=== PATIENT | female | born 1945 | race Caucasian/White ===

== ENCOUNTER 2018-02-12 20:32 | Emergency (ER) | payer OTHER, BC ==
[2018-02-12 20:36] VITALS: TEMP 98.4; BMI 22.6
--- NOTE | 2018-02-12 21:07 | PDOC ---
History of Present Illness - History of Present Illness Initial Comments: This patient is a 72 year old female with PMHx of diabetes, hypertension, hyperthyroidism (thyroid goiter removal), who presents w/ headache, nausea, and lightheadedness this morning. Patient states that she woke up this morning with a pressure-like headache and just didnt feel well. She states last night she didn't sleep well. She states that she gets frequent headaches. She tried eating breakfast (cereal, banana) but states that she couldn't eat much. She also had coffee, chicken noodle soup and grapes throughout the day but states that she didn't have much of an appetite. She states laying down makes her feel better, and movement makes her feel worse. She reports associated muscle aches & blurry vision. Denies falls, trauma loc, palpitations, cp, sob, vomit, or fever. Allergies: penicillins (rash) PCP: César Baig. Surgical Hx: Right thyroid lobectomy (09/15/12) Appendectomy (1966) Meds: Atorvastatin, Metoprolol, Janumet, Levothyroxine <Tala Pruett - Last Filed: 02/12/18 22:35> <Mary Kelly - Last Filed: 02/13/18 00:15> - General Chief Complaint: Lightheaded Stated Complaint: NAUSEA, HEADACHE, DIZZINESS Time Seen by Provider: 02/12/18 21:02 Past History <Tala Pruett - Last Filed: 02/12/18 22:35> - Past Medical History Anemia: Yes (SEES DR GOSS FOR HX ANEMIA) Asthma: No Cancer: No Cardiac Disorders: No CVA: No COPD: No CHF: No Dementia: No Diabetes: Yes GI Disorders: No Disorders: No HTN: Yes Hypercholesterolemia: Yes Liver Disease: No Seizures: No Thyroid Disease: Yes (HYPER) - Surgical History Abdominal Surgery: No Appendectomy: Yes Cardiac Surgery: No Cholecystectomy: No Lung Surgery: No Neurologic Surgery: No Orthopedic Surgery: No - Suicide/Smoking/Psychosocial Hx Smoking History: Never smoked Have you smoked in the past 12 months: Yes Number of Cigarettes Smoked Daily: 3 Information on smoking cessation initiated: No 'Breaking Loose' booklet given: 09/15/12 Hx Alcohol Use: No (SOCIAL) Drug/Substance Use Hx: No Substance Use Type: None Hx Substance Use Treatment: No <Mary Kelly - Last Filed: 02/13/18 00:15> - Past Medical History Allergies/Adverse Reactions: Allergies Allergy/AdvReac Type Severity Reaction Status Date / Time Penicillins Allergy Rash Verified 02/12/18 20:36 Home Medications: Ambulatory Orders Atorvastatin Ca [Lipitor] 20 mg PO DAILY #0 tablet 09/16/12 Biotin 500 mcg PO BID #0 tablet 09/16/12 Cholecalciferol (Vitamin D3) [Vitamin D3] 2,000 unit PO BID #0 capsule 09/16/12 Cyanocobalamin (Vitamin B-12) [Vitamin B-12] 1,000 mcg PO DAILY #0 tablet Cyanocobalamin Vit B-12 Inj. [Vitamin B12 Injection -] 1,000 mcg IJ MONTHLY #0 vial 09/16/12 Docosahexanoic Acid/Epa [Fish Oil Softgel] 1 each PO DAILY #0 capsule 09/16/12 Ferrous Fumarate [Iron] 65 mg PO DAILY #0 tablet.er 09/16/12 Hydrocodone Bit/Acetaminophen [Vicodin 5-500] 1 tab PO Q6H PRN #0 tab 09/16/12 Metoprolol Succinate [Toprol XL -] 50 mg PO DAILY #0 tab.sr.24h 09/16/12 Sitagliptin Phos/Metformin HCl [Janumet 50-500 mg Tablet] 1 each PO DAILY #0 tablet 09/16/12 Review of Systems - Review of Systems Comments:: GENERAL/CONSTITUTIONAL: No fever, +muscle aches. HEAD, EYES, EARS, NOSE AND THROAT: +blurry vision. No ear pain or discharge. No sore throat. CARDIOVASCULAR: No chest pain or shortness of breath. RESPIRATORY: No cough, wheezing, or hemoptysis. GASTROINTESTINAL: +nausea, no vomiting, diarrhea or constipation. GENITOURINARY: No dysuria, frequency, or change in urination. MUSCULOSKELETAL: No joint or muscle swelling or pain. No neck or back pain. SKIN: No rash NEUROLOGIC:+headache, +lightheadedness, no loss of consciousness, or change in strength/sensation. ENDOCRINE: No increased thirst. No abnormal weight change. HEMATOLOGIC/LYMPHATIC: No anemia, easy bleeding, or history of blood clots. ALLERGIC/IMMUNOLOGIC: No hives or skin allergy. <Tala Pruett - Last Filed: 02/12/18 22:35> *Physical Exam - Vital Signs Last Vital Signs Temp Pulse Resp BP Pulse Ox 98.4 F 77 18 130/52 L 96 02/12/18 20:33 02/12/18 20:33 02/12/18 20:33 02/12/18 20:33 02/12/18 20:33 - Physical Exam Comments: GENERAL: Awake, alert, and fully oriented, in no acute distress HEAD: No signs of trauma. No sinus tenderness on percussion of sinuses. EYES: PERRLA, EOMI, sclera anicteric, conjunctiva clear. No nystagmus. LUNGS: Breath sounds equal, clear to auscultation bilaterally. No wheezes, and no crackles HEART: Regular rate and rhythm, normal S1 and S2, no murmurs, rubs or gallops ABDOMEN: Soft, nontender, normoactive bowel sounds. No guarding, no rebound. No masses EXTREMITIES: Normal range of motion, no edema. No clubbing or cyanosis. No cords, erythema, or tenderness NEUROLOGICAL: Cranial nerves II through XII grossly intact. Normal speech, normal gait SKIN: Warm, Dry, normal turgor, no rashes or lesions noted. <Tala Pruett - Last Filed: 02/12/18 22:35> - Vital Signs Last Vital Signs Temp Pulse Resp BP Pulse Ox 98.4 F 77 18 130/52 L 96 02/12/18 20:33 02/12/18 20:33 02/12/18 20:33 02/12/18 20:33 02/12/18 20:33 <Mary Kelly - Last Filed: 02/13/18 00:15> Heart Score/ECG Review - ECG Intrepretation Comment:: EKG interpretation: Vent rate: 63 bpm Normal sinus rhythm <Tala Pruett - Last Filed: 02/12/18 22:35> ED Treatment Course - LABORATORY CBC & Chemistry Diagram: 02/12/18 22:00 02/12/18 22:00 <Tala Pruett - Last Filed: 02/12/18 22:35> - LABORATORY CBC & Chemistry Diagram: 02/12/18 22:00 02/12/18 22:00 <Mary Kelly - Last Filed: 02/13/18 00:15> Medical Decision Making - Medical Decision Making 02/12/18 22:30 CBC is normal; her platelets are low; as they have been in the past. Urinalysis is normal. Awaiting the rest of the bloods. Pt has normal exam/ We will hydrate her. Pt has o complaints at this time. She mentions that she has chronic headaches, for which her PMD Duane has already ordered and scheduled her for an MRI of her brain. Pt admits that she was up until 2 am last night and that she always wakes in the middle of the night, and rarely gets a full nioght of sleep. I will recommend that she consider getting a sleep study 02/12/18 22:33 If chemistries are normal, she will be discharged after hydration. <Mary Kelly - Last Filed: 02/13/18 00:15> *DC/Admit/Observation/Transfer - Attestations Scribe Attestion: 02/12/18 21:16 Documentation prepared by Tala Pruett, acting as medical records analyst for Mary Kelly MD. <Tala Pruett - Last Filed: 02/12/18 22:35> - Discharge Dispostion Decision to Admit order: No <Mary Kelly - Last Filed: 02/13/18 00:15> Diagnosis at time of Disposition: Headache, Low blood pressure - Discharge Dispostion Disposition: HOME Condition at time of disposition: Stable - Referrals Referrals: César Zepeda MD [Primary Care Provider] - - Patient Instructions Printed Discharge Instructions: DI for Dehydration -- Adult, DI for Headache - Post Discharge Activity
[2018-02-12] MEDS ORDERED: SODIUM CHLORIDE 0.9% 500 ML INFUS.BAG IV ONE (21:40)
[2018-02-12 22:25] LABS: BASO % 1.1 % (0-2.0); EOS % 2.9 % (0-4.5); HEMATOCRIT 40.4 % (32.4-45.2); HEMOGLOBIN 13.8 GM/dL (10.7-15.3); MCH 31.4 pg (25.7-33.7); MCHC 34.1 g/dl (32.0-36.0); MONO % 8.9 % (3.8-10.2); NEUT % 50.1 % (42.8-82.8); PLATELET COUNT 120 K/MM3 (134-434); RBC 4.39 M/mm3 (3.60-5.2); RDW 13.2 % (11.6-15.6); WHITE BLOOD COUNT 6.9 K/mm3 (4.0-10.0)
[2018-02-12 22:29] LABS: URINE APPEARANCE SLCLOUDY; URINE BILIRUBIN NEGATIVE (<2.0 mg/dL); URINE COLOR AMBER; URINE GLUCOSE (UA) NEGATIVE (NEGATIVE); URINE KETONE NEGATIVE (NEGATIVE); URINE LEUK ESTERASE NEGATIVE (NEGATIVE); URINE NITRITE NEGATIVE (NEGATIVE); URINE PROTEIN NEGATIVE (NEGATIVE); URINE UROBILINOGEN NEGATIVE mg/dL (0.2-1.0)
[2018-02-12 22:48] LABS: ALK PHOS 96 U/L (45-117); ANION GAP 6 MMOL/L (8-16); BILIRUBIN,TOTAL 0.5 mg/dL (0.2-1); BLOOD UREA NITROGEN 14 mg/dL (7-18); CALCIUM 9.4 mg/dL (8.5-10.1); CHLORIDE 108 mmol/L (98-107); CO2 28 mmol/L (21-32); CREATININE 0.5 mg/dL (0.55-1.3); GLUCOSE,RANDOM 84 mg/dL (74-106); POTASSIUM 4.2 mmol/L (3.5-5.1); SGOT/AST 26 U/L (15-37); SGPT/ALT 36 U/L (13-61); SODIUM 141 mmol/L (136-145)
[2018-02-13 00:29] VITALS: BP 123/67; PULSE 66
--- NOTE | 2018-02-13 18:03 | EKG ---
Test Reason : Blood Pressure : / mmHG Vent. Rate : 063 BPM Atrial Rate : 063 BPM P-R Int : 172 ms QRS Dur : 072 ms QT Int : 444 ms P-R-T Axes : 071 021 052 degrees QTc Int : 454 ms NORMAL SINUS RHYTHM NORMAL ECG WHEN COMPARED WITH ECG OF 03-SEP-2012 11:43, NO SIGNIFICANT CHANGE WAS FOUND Confirmed by EDUIN OWENS MD ([id number]) on 02/13/2018 6:02:39 PM Referred By: Confirmed By:EDUIN OWENS MD
== END 2018-02-13 01:19 | disposition home or self-care (01) ==
LOC: JER 20:32
DX: I95.9 Hypotension, unspecified (principal); R51 Headache; I10 Essential (primary) hypertension; E11.9 Type 2 diabetes mellitus without complications; Z79.84 Long term (current) use of oral hypoglycemic drugs; E05.90 Thyrotoxicosis, unspecified without thyrotoxic crisis or storm; Z86.2 Personal history of diseases of the blood and blood-forming organs and certain disorders involving the immune mechanism; Z88.0 Allergy status to penicillin
CPT/HCPCS: 36415; 80053; 81003; 82550; 84484; 85025; 87086; 93005; 93010; 99282-25

== ENCOUNTER 2020-05-30 12:13 | Emergency (ER) | payer BC, OTHER ==
[2020-05-30 12:27] VITALS: BP 166/80; PULSE 67; TEMP 97.8; BMI 23.0
[2020-05-30] MEDS ORDERED: ACETAMINOPHEN 325 MG TABLET (FP) PO ONE (12:32)
[2020-05-30] MEDS ORDERED: MECLIZINE HCL 25 MG TABLET (FP) PO ONE (12:32)
[2020-05-30] MEDS ORDERED: ACETAMINOPHEN 325 MG TABLET (FP) ONE (12:35)
[2020-05-30] MEDS ORDERED: MECLIZINE HCL 25 MG TABLET (FP) ONE (12:36)
== END 2020-05-30 14:05 | disposition home or self-care (01) ==
LOC: FER 12:13
DX: R42 Dizziness and giddiness (principal)
CPT/HCPCS: 70450-TC; 99284-25

== ENCOUNTER 2020-08-29 07:18 | Day surgery (SDC) | payer OTHER, BC ==
[2020-08-27 16:14] VITALS: BMI 23.2
[2020-08-29] MEDS ORDERED: MIDAZOLAM HCL 2 MG/2 ML SINGLE DOSE VIAL ONE (08:51)
[2020-08-29] MEDS ORDERED: PROPOFOL 20 ML ONE (09:09)
[2020-08-29] MEDS ORDERED: ONDANSETRON 4 MG/2 ML VIAL ONE (09:23)
[2020-08-29] MEDS ORDERED: oxyCODONE HCL 5 MG TABLET PO PRN (09:47)
[2020-08-29] MEDS ORDERED: ONDANSETRON 4 MG/2 ML VIAL IVPUSH PRN (09:47)
[2020-08-29 10:28] VITALS: TEMP 96.9
[2020-08-29 10:50] VITALS: BP 104/60; PULSE 60
== END 2020-08-29 10:47 | disposition home or self-care (01) ==
LOC: FASU 07:18
PROVIDERS: ATTEND Orthopaedic Surgery Hand Surgery
PROC: 0LN70ZZ Release Right Hand Tendon, Open Approach (ICD-10-PCS; 2020-08-29)
PROC: 0LN70ZZ Release Right Hand Tendon, Open Approach (ICD-10-PCS; principal; 2020-08-29 09:15)
DX: M65.341 Trigger finger, right ring finger (principal); M65.351 Trigger finger, right little finger
CPT/HCPCS: 82962; 94760

== ENCOUNTER 2022-05-12 13:12 | Inpatient (IN) | payer OTHER, BC ==
[2022-05-12 13:38] VITALS: BMI 23.0
[2022-05-12] MEDS ORDERED: ACETAMINOPHEN 1000 MG/100 ML BAG IVPB ONE (14:02)
[2022-05-12] MEDS ORDERED: ACETAMINOPHEN INJECTION 100 ML IVPB ONE (14:19)
[2022-05-12 14:32] LABS: BASO % 0.6 % (0-2.0); EOS % 1.8 % (0-4.5); HEMATOCRIT 40.4 % (32.4-45.2); HEMOGLOBIN 13.6 GM/dL (10.7-15.3); LYMPH % 17.9 % (8-40); MCH 30.2 pg (25.7-33.7); MCHC 33.5 g/dl (32.0-36.0); MEAN CELL VOLUME 89.9 fl (80-96); MEAN PLT VOLUME 10.2 fl (7.5-11.1); MONO % 6.2 % (3.8-10.2); NEUT % 73.5 % (42.8-82.8); PLATELET COUNT 122 10^3/uL (134-434); RDW 13.3 % (11.6-15.6); WHITE BLOOD COUNT 6.5 K/mm3 (4.0-10.0)
[2022-05-12 14:48] LABS: INR 1.09 (0.83-1.09); PROTHROMBIN TIME (PATIENT) 12.5 SEC (9.7-13.0)
[2022-05-12 14:51] LABS: ACTIVATED PTT 30.1 SECONDS (25.2-36.5)
[2022-05-12 14:52] LABS: CALCIUM 9.5 mg/dL (8.5-10.1)
[2022-05-12 14:53] LABS: ALBUMIN 4.2 g/dl (3.4-5.0); BLOOD UREA NITROGEN 25.5 mg/dL (7-18)
[2022-05-12 14:56] LABS: CREATININE 0.8 mg/dL (0.55-1.3)
[2022-05-12 14:58] LABS: BILIRUBIN,TOTAL 0.8 mg/dL (0.2-1); TOT PROT 7.3 g/dl (6.4-8.2)
[2022-05-12] MEDS ORDERED: morphine CARPU-JECT 2 MG/1 ML DISP.SYRIN IVPUSH ONE ×2 (16:24→16:43)
[2022-05-12] MEDS ORDERED: LIDOCAINE 5% TOPICAL PATCH TP ONE (16:25)
[2022-05-12] MEDS ORDERED: LIDOCAINE 5% TOPICAL PATCH ONE (16:55)
[2022-05-12] MEDS ORDERED: CALCITONIN - SALMON SYNTHETIC 200 UNITS/SPRAY NS SCH (17:00)
[2022-05-12] MEDS ORDERED: morphine SULFATE 4 MG/ML VIAL ONE (17:02)
[2022-05-12] MEDS ORDERED: KETOROLAC TROMETHAMINE 30 MG/1 ML VIAL ONE ×2 (18:15→22:26)
[2022-05-12] MEDS: KETOROLAC TROMETHAMINE 30 MG/1 ML VIAL IVPUSH PRN (18:19)
[2022-05-12] MEDS: CALCITONIN - SALMON SYNTHETIC 200 UNITS/SPRAY NS SCH (19:54)
[2022-05-12] MEDS ORDERED: HEPARIN NA (PORCINE) 5,000 UNITS/ML 1ML VIAL ONE (21:28)
[2022-05-12] MEDS ORDERED: LIDOCAINE PATCH REMOVAL MC SCH (22:00)
[2022-05-12] MEDS: HEPARIN NA (PORCINE) 5,000 UNITS/ML 1ML VIAL SQ SCH (22:31)
[2022-05-12] MEDS: LIDOCAINE PATCH REMOVAL MC SCH (22:34)
[2022-05-13 01:15] LABS: ALBUMIN 3.9 g/dl (3.4-5.0); BLOOD UREA NITROGEN 25.7 mg/dL (7-18); CALCIUM 8.7 mg/dL (8.5-10.1)
[2022-05-13 01:18] LABS: CREATININE 0.8 mg/dL (0.55-1.3)
[2022-05-13 01:20] LABS: BILIRUBIN,TOTAL 0.9 mg/dL (0.2-1); TOT PROT 6.7 g/dl (6.4-8.2)
[2022-05-13] MEDS: KETOROLAC TROMETHAMINE 30 MG/1 ML VIAL IVPUSH PRN (05:16)
[2022-05-13] MEDS ORDERED: sitaGLIPtin PHOSPHATE 50 MG TABLET PO SCH (07:00)
[2022-05-13 08:55] LABS: HEMATOCRIT 38.3 % (32.4-45.2); MCH 30.3 pg (25.7-33.7); MCHC 33.8 g/dl (32.0-36.0); MEAN CELL VOLUME 89.4 fl (80-96); MEAN PLT VOLUME 10.6 fl (7.5-11.1); PLATELET COUNT 116 10^3/uL (134-434); RBC 4.28 M/mm3 (3.60-5.2); RDW 13.3 % (11.6-15.6); WHITE BLOOD COUNT 6.1 K/mm3 (4.0-10.0)
[2022-05-13] MEDS: HEPARIN NA (PORCINE) 5,000 UNITS/ML 1ML VIAL SQ SCH ×2 (09:49→21:12)
[2022-05-13] MEDS: LIDOCAINE 5% TOPICAL PATCH TP SCH (09:49)
[2022-05-13] MEDS: CALCITONIN - SALMON SYNTHETIC 200 UNITS/SPRAY NS SCH (09:51)
[2022-05-13] MEDS: sitaGLIPtin PHOSPHATE 50 MG TABLET PO SCH (16:51)
[2022-05-13] MEDS: INSULIN SLIDING SCALE (NOVOLOG) 1 VIAL SQ SCH ×2 (16:54→21:18)
[2022-05-13] MEDS: traMADol HCL 50 MG TABLET PO PRN (18:15)
[2022-05-13] MEDS: LIDOCAINE PATCH REMOVAL MC SCH (21:19)
[2022-05-14] MEDS: KETOROLAC TROMETHAMINE 30 MG/1 ML VIAL IVPUSH PRN ×3 (00:02→22:01)
[2022-05-14] MEDS: LEVOTHYROXINE NA 25 MCG TABLET (FP) PO SCH (06:18)
[2022-05-14] MEDS: sitaGLIPtin PHOSPHATE 50 MG TABLET PO SCH ×2 (06:19→17:08)
[2022-05-14] MEDS: INSULIN SLIDING SCALE (NOVOLOG) 1 VIAL SQ SCH ×4 (06:23→21:01)
[2022-05-14] MEDS: traMADol HCL 50 MG TABLET PO PRN (07:53)
[2022-05-14] MEDS: LIDOCAINE 5% TOPICAL PATCH TP SCH (10:36)
[2022-05-14] MEDS: HEPARIN NA (PORCINE) 5,000 UNITS/ML 1ML VIAL SQ SCH ×2 (10:36→21:43)
[2022-05-14] MEDS: CALCITONIN - SALMON SYNTHETIC 200 UNITS/SPRAY NS SCH (10:39)
[2022-05-14] MEDS: LIDOCAINE PATCH REMOVAL MC SCH (21:44)
[2022-05-15] MEDS: sitaGLIPtin PHOSPHATE 50 MG TABLET PO SCH ×2 (06:10→17:12)
[2022-05-15] MEDS: LEVOTHYROXINE NA 25 MCG TABLET (FP) PO SCH (06:10)
[2022-05-15] MEDS: INSULIN SLIDING SCALE (NOVOLOG) 1 VIAL SQ SCH ×4 (06:51→23:23)
[2022-05-15] MEDS: LIDOCAINE 5% TOPICAL PATCH TP SCH (09:37)
[2022-05-15] MEDS: HEPARIN NA (PORCINE) 5,000 UNITS/ML 1ML VIAL SQ SCH ×2 (09:37→22:29)
[2022-05-15] MEDS: CALCITONIN - SALMON SYNTHETIC 200 UNITS/SPRAY NS SCH (09:37)
[2022-05-15] MEDS: KETOROLAC TROMETHAMINE 30 MG/1 ML VIAL IVPUSH PRN (09:39)
[2022-05-15] MEDS: LIDOCAINE PATCH REMOVAL MC SCH (22:29)
[2022-05-15] MEDS: traMADol HCL 50 MG TABLET PO PRN (23:19)
[2022-05-16] MEDS: LEVOTHYROXINE NA 25 MCG TABLET (FP) PO SCH (06:14)
[2022-05-16] MEDS: sitaGLIPtin PHOSPHATE 50 MG TABLET PO SCH ×2 (06:14→16:30)
[2022-05-16] MEDS: INSULIN SLIDING SCALE (NOVOLOG) 1 VIAL SQ SCH ×4 (08:02→21:44)
[2022-05-16] MEDS: KETOROLAC TROMETHAMINE 30 MG/1 ML VIAL IVPUSH PRN (09:23)
[2022-05-16] MEDS: HEPARIN NA (PORCINE) 5,000 UNITS/ML 1ML VIAL SQ SCH ×2 (09:26→21:25)
[2022-05-16] MEDS: LIDOCAINE 5% TOPICAL PATCH TP SCH (09:26)
[2022-05-16] MEDS: CALCITONIN - SALMON SYNTHETIC 200 UNITS/SPRAY NS SCH (09:27)
[2022-05-16] MEDS: traMADol HCL 50 MG TABLET PO PRN (20:56)
[2022-05-16] MEDS ORDERED: KETOROLAC TROMETHAMINE 15 MG/ML VIAL IVPUSH ONE (21:10)
[2022-05-16] MEDS: LIDOCAINE PATCH REMOVAL MC SCH ×2 (21:26)
[2022-05-17] MEDS: sitaGLIPtin PHOSPHATE 50 MG TABLET PO SCH ×2 (07:00→16:39)
[2022-05-17] MEDS: LEVOTHYROXINE NA 25 MCG TABLET (FP) PO SCH (07:00)
[2022-05-17] MEDS: INSULIN SLIDING SCALE (NOVOLOG) 1 VIAL SQ SCH ×4 (07:06→21:51)
[2022-05-17] MEDS: HEPARIN NA (PORCINE) 5,000 UNITS/ML 1ML VIAL SQ SCH ×2 (10:21→21:45)
[2022-05-17] MEDS: traMADol HCL 50 MG TABLET PO PRN ×2 (10:21→17:59)
[2022-05-17] MEDS: CALCITONIN - SALMON SYNTHETIC 200 UNITS/SPRAY NS SCH (10:30)
[2022-05-17] MEDS: LIDOCAINE 5% TOPICAL PATCH TP SCH (10:30)
[2022-05-17] MEDS: ACETAMINOPHEN 325 MG TABLET (FP) PO PRN (19:51)
[2022-05-17] MEDS: LIDOCAINE PATCH REMOVAL MC SCH ×2 (21:46)
[2022-05-18] MEDS: traMADol HCL 50 MG TABLET PO PRN ×2 (05:59→12:59)
[2022-05-18] MEDS: sitaGLIPtin PHOSPHATE 50 MG TABLET PO SCH ×2 (06:01→16:58)
[2022-05-18] MEDS: LEVOTHYROXINE NA 25 MCG TABLET (FP) PO SCH (06:01)
[2022-05-18] MEDS: INSULIN SLIDING SCALE (NOVOLOG) 1 VIAL SQ SCH ×4 (06:02→21:14)
[2022-05-18] MEDS: LIDOCAINE 5% TOPICAL PATCH TP SCH (09:01)
[2022-05-18] MEDS: HEPARIN NA (PORCINE) 5,000 UNITS/ML 1ML VIAL SQ SCH ×2 (09:02→21:15)
[2022-05-18] MEDS: CALCITONIN - SALMON SYNTHETIC 200 UNITS/SPRAY NS SCH (09:07)
[2022-05-18] MEDS: ACETAMINOPHEN 325 MG TABLET (FP) PO PRN (09:09)
[2022-05-18] MEDS: LIDOCAINE PATCH REMOVAL MC SCH ×2 (21:16)
[2022-05-19 05:15] VITALS: BP 138/69; PULSE 76; RESP 18; TEMP 97.6
[2022-05-19] MEDS: sitaGLIPtin PHOSPHATE 50 MG TABLET PO SCH (06:01)
[2022-05-19] MEDS: INSULIN SLIDING SCALE (NOVOLOG) 1 VIAL SQ SCH ×2 (06:01→12:40)
[2022-05-19] MEDS: LEVOTHYROXINE NA 25 MCG TABLET (FP) PO SCH (06:01)
[2022-05-19] MEDS: ACETAMINOPHEN 325 MG TABLET (FP) PO PRN (06:02)
[2022-05-19] MEDS: LIDOCAINE 5% TOPICAL PATCH TP SCH (10:28)
[2022-05-19] MEDS: CALCITONIN - SALMON SYNTHETIC 200 UNITS/SPRAY NS SCH (10:28)
[2022-05-19] MEDS: HEPARIN NA (PORCINE) 5,000 UNITS/ML 1ML VIAL SQ SCH (10:29)
== END 2022-05-19 12:47 | disposition home health service (06) | DRG 206 ==
LOC: JER 13:12 → JERBED 16:27 → OBSVTOIN 16:43 → J8W 22:53
PROVIDERS: ADMIT Family Medicine; ATTEND Family Medicine
DX: S22.31XA Fracture of one rib, right side, initial encounter for closed fracture (principal); I10 Essential (primary) hypertension; E78.5 Hyperlipidemia, unspecified; E11.9 Type 2 diabetes mellitus without complications; I95.9 Hypotension, unspecified; R42 Dizziness and giddiness; E03.9 Hypothyroidism, unspecified; W17.89XA Other fall from one level to another, initial encounter; Y92.098 Other place in other non-institutional residence as the place of occurrence of the external cause
CPT/HCPCS: 36415; 70450-TC; 71250-TC; 72125-TC; 74176-TC; 80053; 82962; 84443; 85025; 85027; 85610; 85730; 86850; 86900; 86901; 93005; 93010; 93880-TC; 97116-GP; 97161-GP; 99285-25; C9803-CS; G0378; J1644; U0003; U0005

== ENCOUNTER 2023-02-04 09:14 | Day surgery (SDC) | payer OTHER, BC ==
[2023-01-27 12:21] VITALS: BMI 23.8
[2023-02-04] MEDS ORDERED: MIDAZOLAM HCL 2 MG/2 ML SINGLE DOSE VIAL ONE ×2 (09:25→11:34)
[2023-02-04] MEDS ORDERED: TETRACAINE 0.5% OPHTH SOLN 2 ML BOTTLE ONE (09:30)
[2023-02-04] MEDS ORDERED: CARBACHOL 0.01% INTRA-OCULAR 1.5 ML VIAL ONE (09:30)
[2023-02-04] MEDS ORDERED: LIDOCAINE 1% P/F 10 MG/ML VIAL ONE (09:30)
[2023-02-04] MEDS ORDERED: NEO/POLYMYX B SULF/DEXAMETH OPHTHALMIC 5ML BOTTLE ONE (09:30)
[2023-02-04] MEDS ORDERED: BSS (NA/CA/MG/K) BALANCED SALT SOLUTION OPHTH SOLN 15 ML BOTTLE ONE (09:30)
[2023-02-04] MEDS ORDERED: TROPICAMIDE 1% OPHTH SOLN 15 ML BOTTLE ONE (10:08)
[2023-02-04] MEDS ORDERED: PHENYLEPHRINE 2.5% OPTHALMIC DROP 2ML BOTTLE ONE (10:08)
[2023-02-04] MEDS ORDERED: CIPROFLOXACIN HCL 0.3% OPHTH 2.5ML BOTTLE ONE (10:08)
[2023-02-04] MEDS ORDERED: CYCLOPENTOLATE 2% OPHTH SOLN 2 ML BOTTLE ONE (10:08)
[2023-02-04] MEDS ORDERED: CIPROFLOXACIN HCL 0.3% OPHTH 2.5ML BOTTLE OS ONE ×3 (10:20→10:30)
[2023-02-04] MEDS ORDERED: TROPICAMIDE 1% OPHTH SOLN 15 ML BOTTLE OS ONE ×3 (10:20→10:30)
[2023-02-04] MEDS ORDERED: PHENYLEPHRINE 2.5% OPHTH SOLN 15 ML BOTTLE OS ONE ×3 (10:20→10:30)
[2023-02-04] MEDS ORDERED: CYCLOPENTOLATE 2% OPHTH SOLN 2 ML BOTTLE OS ONE ×3 (10:20→10:30)
[2023-02-04 12:07] VITALS: RESP 16; TEMP 97.9
[2023-02-04 13:12] VITALS: BP 108/59; PULSE 58
== END 2023-02-04 12:40 | disposition home or self-care (01) ==
LOC: FASU 09:14
PROVIDERS: ATTEND Ophthalmology
PROC: 08RK3JZ Replacement of Left Lens with Synthetic Substitute, Percutaneous Approach (ICD-10-PCS; principal; 2023-02-04 11:46)
DX: H26.8 Other specified cataract (principal)
CPT/HCPCS: 66984; V2632; 82962

== ENCOUNTER 2023-03-11 10:03 | Day surgery (SDC) | payer OTHER, BC ==
[2023-03-10 15:45] VITALS: BMI 23.8
[2023-03-11] MEDS: TROPICAMIDE 1% OPHTH SOLN 15 ML BOTTLE ONE ×3 (11:15→11:25)
[2023-03-11] MEDS: PHENYLEPHRINE 2.5% OPTHALMIC DROP 2ML BOTTLE ONE ×3 (11:15→11:25)
[2023-03-11] MEDS: CIPROFLOXACIN HCL 0.3% OPHTH 2.5ML BOTTLE ONE ×3 (11:15→11:25)
[2023-03-11] MEDS: CYCLOPENTOLATE 2% OPHTH SOLN 2 ML BOTTLE ONE ×3 (11:15→11:25)
[2023-03-11] MEDS ORDERED: MIDAZOLAM HCL 2 MG/2 ML SINGLE DOSE VIAL ONE (12:45)
[2023-03-11 13:29] VITALS: RESP 16; TEMP 98
[2023-03-11] MEDS ORDERED: ACETAMINOPHEN 325 MG TABLET (FP) ONE (13:36)
[2023-03-11] MEDS ORDERED: ACETAMINOPHEN 325 MG TABLET (FP) PO ONE (13:44)
[2023-03-11 13:51] VITALS: BP 135/78; PULSE 70
== END 2023-03-11 13:50 | disposition home or self-care (01) ==
LOC: FASU 10:03
PROVIDERS: ATTEND Ophthalmology
PROC: 08RJ3JZ Replacement of Right Lens with Synthetic Substitute, Percutaneous Approach (ICD-10-PCS; principal; 2023-03-11 12:49)
DX: H26.8 Other specified cataract (principal)
CPT/HCPCS: 66984; V2632; 82962